=== PATIENT | male | born 1990 | race Caucasian/White ===

== ENCOUNTER 2018-11-09 20:31 | Emergency (ER) | payer SELFPAY ==
[~2018-11-09] VITALS: Ht 182.9 cm; Wt 90.7 kg
[2018-11-09 20:31] VITALS: BP_SYST 138
[2018-11-09] MEDS ORDERED: LORazepam 1 MG TABLET PO ONE (21:00)
[2018-11-09 23:15] VITALS: BP_SYST 152
== END 2018-11-09 23:15 | disposition home or self-care (01) ==
LOC: SED 20:31
DX: F41.9 Anxiety disorder, unspecified (principal); F17.200 Nicotine dependence, unspecified, uncomplicated; R03.0 Elevated blood-pressure reading, without diagnosis of hypertension
CPT/HCPCS: 93005; 99283

== ENCOUNTER 2018-12-02 00:29 | Emergency (ER) | payer SELFPAY ==
[~2018-12-02] VITALS: Ht 180.3 cm; Wt 77.1 kg
[2018-12-02 00:29] VITALS: BP_SYST 128
[2018-12-02] MEDS ORDERED: LORazepam 2 MG/ML VIAL (FOR ER USE) IVP ONE (00:45)
[2018-12-02] MEDS ORDERED: NACL 0.9% 2,000 ML IV ONE (00:45)
[2018-12-02] MEDS ORDERED: DIPHENHYDRAMINE INJ 50 MG/ML VIAL IVP ONE (00:45)
[2018-12-02] MEDS ORDERED: HALOPERIDOL LACTATE 5 MG/ML VIAL IM ONE (00:45)
[2018-12-02] MEDS ORDERED: HALOPERIDOL LACTATE 5 MG/ML VIAL IVP ONE (00:45)
[2018-12-02] MEDS ORDERED: LORazepam 2 MG/ML VIAL (FOR ER USE) IM ONE ×2 (00:45→01:00)
[2018-12-02] MEDS ORDERED: DIPHENHYDRAMINE INJ 50 MG/ML VIAL IM ONE (00:45)
[2018-12-02] MEDS ORDERED: DIPHENHYDRAMINE INJ 50 MG/ML VIAL ONE (00:48)
[2018-12-02] MEDS ORDERED: HALOPERIDOL LACTATE 5 MG/ML VIAL ONE (00:49)
[2018-12-02] MEDS ORDERED: LORazepam 2 MG/ML VIAL (FOR ER USE) ONE (00:49)
[2018-12-02 02:09] LABS: HEMOGLOBIN 15.9 g/dL (14.0-18.0); MEAN CORPUSCULAR HEMOGLOBIN 31 pg (27-31); MEAN CORPUSCULAR HGB CONC 35 % (32-36); MEAN CORPUSCULAR VOLUME 88 fL (79.0-98.0); PLATELET COUNT (AUTO) 299 K/uL (130-430); RED CELL DISTRIBUTION WIDTH 12.6 % (9.0-15.0); WHITE BLOOD COUNT (AUTO) 21.7 K/uL (4.8-10.8)
[2018-12-02 02:37] LABS: BILIRUBIN,URINE NEGATIVE (NEGATIVE); BLOOD, URINE NEGATIVE (NEGATIVE); CLARITY/URINE CLEAR (CLEAR); COLOR,URINE YELLOW (YELLOW); GLUCOSE,URINE NEGATIVE (NEGATIVE); KETONES,URINE TRACE (NEGATIVE); LEUKOCYTE ESTERASE ,URINE NEGATIVE (NEGATIVE); NITRITE, URINE NEGATIVE (NEGATIVE); PH,URINE 5.5 (5.0-8.0); PROTEIN URINE TRACE (NEGATIVE); UROBILINOGEN,URINE 0.2 (0.2-1.0)
[2018-12-02 02:44] LABS: RBC,URINE 0-3 /HPF (0-3)
[2018-12-02 02:45] LABS: BACTERIA,URINE FEW /HPF (None Seen); HYALINE CASTS, URINE 0-10 /LPF (None Seen); WBC,URINE 0-3 /HPF (0-3)
[2018-12-02 02:49] LABS: METHAMPHETAMINES SCREEN,URINE POSITIVE (NEG <=500); OPIATE, URINE POSITIVE (NEG <=100); URINE AMPHETAMINE POSITIVE (NEG <=500)
[2018-12-02 02:50] LABS: BARBITURATE, URINE NEGATIVE (NEG <=200); BENZODIAZEPINE, URINE NEGATIVE (NEG <=150); CANNABINOID, URINE NEGATIVE (NEG <=50); COCAINE, URINE NEGATIVE (NEG <=150); PHENCYCLIDINE SCREEN,URINE NEGATIVE (NEG <=25); UR TRICYCLIC ANTIDEPRESSANTS POSITIVE (NEG <=300); URINE METHADONE NEGATIVE (NEG <=200); URINE OXYCODONE SCREEN NEGATIVE (NEG <=100); URINE PROPOXYPHENE SCREEN NEGATIVE (NEG <=300)
[2018-12-02 03:12] LABS: BAND % (MANUAL) 13 % (0-6); LYMPHOCYTES % (MANUAL) 7 % (20-46)
[2018-12-02 03:13] LABS: ANION GAP 13 (5-15); ATYPICAL LYMPHOCYTES % 0 % (0-0); BASOPHILS % (MANUAL) 0 % (0-2); CALCIUM 8.9 mg/dL (8.4-11.0); CHLORIDE 99 mmol/L (98-107); CREATININE 1.67 mg/dL (0.55-1.30); EOSINOPHILS % (MANUAL) 1 % (0-7); GLUCOSE 71 mg/dL (70-99); METAMYELOCYTES % 0 % (0-0); MONOCYTES % (MANUAL) 4 % (0-11); POTASSIUM 3.6 mmol/L (3.5-5.1); SODIUM SERUM 139 mmol/L (136-145); UREA NITROGEN, BLOOD 18 mg/dL (8-21)
[2018-12-02 03:27] LABS: ALANINE AMINOTRANSFERASE 67 U/L (12-78); ALBUMIN 3.9 g/dL (3.4-4.8); ASPARTATE AMINOTRANSFERASE 48 U/L (10-37); GFR AFRICAN AMERICAN 64 mL/min (>90); TOTAL BILIRUBIN 0.5 mg/dL (0.0-1.0)
[2018-12-02 03:28] LABS: ALCOHOL, BLOOD < 3 mg/dL (<10)
[2018-12-02 08:36] VITALS: BP_SYST 149
== END 2018-12-02 08:36 | disposition home or self-care (01) ==
LOC: SED 00:29
DX: T43.621A Poisoning by amphetamines, accidental (unintentional), initial encounter (principal); N17.9 Acute kidney failure, unspecified; F19.10 Other psychoactive substance abuse, uncomplicated; Y92.89 Other specified places as the place of occurrence of the external cause
CPT/HCPCS: 36415; 71045; 80053; 80307; 81000; 84484; 85007; 85027; 96372; 99284; G0482; J1200; J1630; J2060; J7030